=== PATIENT | male | born 1975 | race African-American/Black ===

== ENCOUNTER 2018-08-21 09:37 | Emergency (ER) | payer SELFPAY ==
[~2018-08-21] VITALS: Ht 175.3 cm; Wt 78.5 kg
--- NOTE | 2018-08-21 09:52 | NUR ---
PT WALKED INTO EMERGENCY ROOM WITH C/C OF LUQ ABDOMINAL PAIN PT DENIES TRAUMA BURNING WITH URINATION.
[2018-08-21 10:00] VITALS: BP 158/76
== END 2018-08-21 10:01 | disposition home or self-care (01) ==
LOC: ER 09:48
DX: R10.12 Left upper quadrant pain (principal)
CPT/HCPCS: A4606; Z7502; Z7610